=== PATIENT | female | born 1995 | race American Indian/Alaskan Native ===

== ENCOUNTER 2020-07-08 19:58 | Emergency (ER) | payer SELFPAY ==
[2020-07-08 21:14] VITALS: BP 128/91
[2020-07-08] MEDS ORDERED: HYOSCYAMINE SUBL 0.125 MG TAB SL ONE (21:43)
[2020-07-08] MEDS ORDERED: ONDANSETRON 4 MG ODT TAB PO STA (21:43)
[2020-07-08 23:01] LABS: Bacteria,Urine 1+ /HPF (Negative); Mucus,Urine FEW /HPF; RBC,Urine < 1.0 /HPF (0.0-6.0); WBC,Urine < 1.0 /HPF (0.0-6.0)
[2020-07-08 23:02] LABS: Bilirubin,Urine NEG (Negative); Blood,Urine NEG (Negative); Color,Urine Straw (Yellow); Protein,Urine <15 mg/dL mg/dL (Negative); Urobilinogen,Urine < 2.0 mg/dL (<2.0)
[2020-07-08 23:08] LABS: Basophils % (Auto) 0.3 % (0.0-1.8); Eosinophils % (Auto) 0.2 % (0.0-4.3); Hematocrit 39.9 % (30.3-42.9); Hemoglobin 13.4 gm/dl (10.1-14.3); Lymphocytes # (Auto) 1.1 K/mm3 (1.2-5.4); Lymphocytes % (Auto) 9.6 % (13.4-35.0); Mean Corpuscular HGB Conc 34 % (30-34); Mean Corpuscular Volume 95 fl (79-97); Monocytes # (Auto) 0.2 K/mm3 (0.0-0.8); Monocytes % (Auto) 1.9 % (0.0-7.3); Platelet Count 353 K/mm3 (140-440); Red Blood Count 4.18 M/mm3 (3.65-5.03); Red Cell Distribution Width 13.5 % (13.2-15.2)
[2020-07-08] MEDS ORDERED: SODIUM CHLORIDE 0.9% 1000 ML 1,000 ML IV ONE (23:24)
[2020-07-08] MEDS ORDERED: ONDANSETRON 4 MG/2 ML INJ IV ONE (23:24)
[2020-07-08 23:29] LABS: Alanine Aminotransferase 11 units/L (7-56); Albumin 4.8 g/dL (3.9-5); Blood Urea Nitrogen 7 mg/dL (7-17); Calcium 9.5 mg/dL (8.4-10.2); Hemolysis Index 0
[2020-07-08 23:30] LABS: Alanine Aminotransferase 11 units/L (7-56); Albumin 4.9 g/dL (3.9-5)
--- NOTE | 2020-07-08 23:31 | Emergency Department Report ---
HPI - General Chief Complaint: Nausea/Vomiting/Diarrhea Time Seen by Provider: 07/08/20 23:13 - HPI HPI: This is a 25-year-old -Vietnamese female presents to the emergency department with complaint of a 2-day history of nausea and vomiting, and the p atient now has some left-sided abdominal pain. Through triage the patient had complained of having some generalized chest discomfort. Patient has been unable to attempt any treatment secondary to the persistent nausea and vomiting. She denies any past medical history. No recent travel or sick contacts at home. She denies any tobacco or illicit drug use. The patient says that she has had some chills and subjective fever. She denies any cough, diarrhea, constipation, dysuria, vaginal bleeding or discharge. ED Past Medical Hx - Past Medical History Previous Medical History?: No - Surgical History Past Surgical History?: No - Social History Smoking Status: Never Smoker Substance Use Type: None - Medications Home Medications: Home Medications Medication Instructions Recorded Confirmed Last Taken Type Clotrimazole [Antifungal] 1 each TP BID #1 cream..g. 03/08/19 Unknown Rx Metoclopramide [Reglan] 10 mg PO TID PRN #12 tab 07/09/20 Unknown Rx Ondansetron [Zofran Odt] 4 mg PO Q8HR PRN #15 tab.rapdis 07/09/20 Unknown Rx ED Review of Systems ROS: Stated complaint: VOMITING FOR 2DAYS/CHEST PAIN Other details as noted in HPI Comment: All other systems reviewed and negative Constitutional: chills, fever (Subjective) Eyes: denies: eye pain, vision change ENT: denies: ear pain, throat pain Respiratory: denies: cough, wheezing Cardiovascular: chest pain. denies: palpitations Gastrointestinal: abdominal pain, nausea, vomiting Genitourinary: denies: dysuria, discharge Musculoskeletal: denies: back pain, arthralgia Skin: denies: rash, lesions Neurological: denies: headache, weakness Physical Exam - Physical Exam Vital Signs: Vital Signs 07/08/20 21:11 Temperature 98.9 F Pulse Rate 102 H Respiratory 18 Rate Blood Pressure 128/91 O2 Sat by Pulse 97 Oximetry Physical Exam: GENERAL: The patient is well-developed well-nourished. HENT: Normocephalic. Atraumatic. Patient has moist mucous membranes. EYES: Extraocular motions are intact. NECK: Supple. Trachea is midline. CHEST/LUNGS: Clear to auscultation. There is no respiratory distress noted. HEART/CARDIOVASCULAR: Regular. There is no tachycardia. There is no murmur. ABDOMEN: Abdomen is soft. Left sided abdominal tenderness to palpation. No guarding. Patient has normal bowel sounds. There is no abdominal distention. SKIN: Skin is warm and dry. NEURO: The patient is awake, alert, and oriented. The patient is cooperative. The patient has no focal neurologic deficits. Normal speech. MUSCULOSKELETAL: There is no tenderness or deformity. There is no limitation range of motion. ED Course Vital Signs 07/08/20 21:11 Temperature 98.9 F Pulse Rate 102 H Respiratory 18 Rate Blood Pressure 128/91 O2 Sat by Pulse 97 Oximetry - Reevaluation(s) Reevaluation #1: 07/09/20 05:37 Vital Signs 07/08/20 07/09/20 21:11 04:56 Temperature 98.9 F 98.2 F Pulse Rate 102 H Respiratory 18 Rate Blood Pressure 128/91 O2 Sat by Pulse 97 Oximetry ED Medical Decision Making - Lab Data Result diagrams: 07/08/20 22:19 07/08/20 22:19 Lab Results 07/08/20 07/08/20 07/08/20 Range/Units 22:16 22:19 22:19 WBC 11.0 (4.5-11.0) K/mm3 RBC 4.18 (3.65-5.03) M/mm3 Hgb 13.4 (10.1-14.3) gm/dl Hct 39.9 (30.3-42.9) % MCV 95 (79-97) fl MCH 32 (28-32) pg MCHC 34 (30-34) % RDW 13.5 (13.2-15.2) % Plt Count 353 (140-440) K/mm3 Lymph % (Auto) 9.6 L (13.4-35.0) % [place] % (Auto) 1.9 (0.0-7.3) % Eos % (Auto) 0.2 (0.0-4.3) % Baso % (Auto) 0.3 (0.0-1.8) % Lymph # (Auto) 1.1 L (1.2-5.4) K/mm3 [place] # (Auto) 0.2 (0.0-0.8) K/mm3 Eos # (Auto) 0.0 (0.0-0.4) K/mm3 Baso # (Auto) 0.0 (0.0-0.1) K/mm3 Seg Neutrophils % 88.0 H (40.0-70.0) % Seg Neutrophils # 9.7 H (1.8-7.7) K/mm3 Sodium 142 (137-145) mmol/L Potassium 3.9 (3.6-5.0) mmol/L Chloride 104.9 (98-107) mmol/L Carbon Dioxide 26 (22-30) mmol/L Anion Gap 15 mmol/L BUN 7 (7-17) mg/dL Creatinine 0.5 L (0.6-1.2) mg/dL Estimated GFR > 60 ml/min BUN/Creatinine Ratio 14 % Glucose 118 H (65-100) mg/dL Calcium 9.5 (8.4-10.2) mg/dL Total Bilirubin 0.30 (0.1-1.2) mg/dL Direct Bilirubin (0-0.2) mg/dL Indirect Bilirubin mg/dL AST 20 (5-40) units/L ALT 11 (7-56) units/L Alkaline Phosphatase 63 (35-129) units/L Troponin T < 0.010 (0.00-0.029) ng/mL Total Protein 7.5 (6.3-8.2) g/dL Albumin 4.8 (3.9-5) g/dL Albumin/Globulin Ratio 1.8 % Lipase (13-60) units/L HCG, Qual (Negative) Urine Color Straw (Yellow) Urine Turbidity Clear (Clear) Urine pH 8.0 H (5.0-7.0) Ur Specific [place] 1.014 (1.003-1.030) Urine Protein <15 mg/dl (Negative) mg/dL Urine Glucose (UA) Neg (Negative) mg/dL Urine Ketones Neg (Negative) mg/dL Urine Blood Neg (Negative) Urine Nitrite Neg (Negative) Ur Reducing Substances Not Reportable Urine Bilirubin Neg (Negative) Urine Ictotest Not Reportable Urine Urobilinogen < 2.0 (<2.0) mg/dL Ur Leukocyte Esterase Neg (Negative) Urine WBC (Auto) < 1.0 (0.0-6.0) /HPF Urine RBC (Auto) < 1.0 (0.0-6.0) /HPF U Epithel Cells (Auto) 2.0 (0-13.0) /HPF Urine Bacteria (Auto) 1+ (Negative) /HPF Urine Mucus Few /HPF 07/08/20 07/08/20 Range/Units 22:19 22:19 WBC (4.5-11.0) K/mm3 RBC (3.65-5.03) M/mm3 Hgb (10.1-14.3) gm/dl Hct (30.3-42.9) % MCV (79-97) fl MCH (28-32) pg MCHC (30-34) % RDW (13.2-15.2) % Plt Count (140-440) K/mm3 Lymph % (Auto) (13.4-35.0) % [place] % (Auto) (0.0-7.3) % Eos % (Auto) (0.0-4.3) % Baso % (Auto) (0.0-1.8) % Lymph # (Auto) (1.2-5.4) K/mm3 [place] # (Auto) (0.0-0.8) K/mm3 Eos # (Auto) (0.0-0.4) K/mm3 Baso # (Auto) (0.0-0.1) K/mm3 Seg Neutrophils % (40.0-70.0) % Seg Neutrophils # (1.8-7.7) K/mm3 Sodium (137-145) mmol/L Potassium (3.6-5.0) mmol/L Chloride (98-107) mmol/L Carbon Dioxide (22-30) mmol/L Anion Gap mmol/L BUN (7-17) mg/dL Creatinine (0.6-1.2) mg/dL Estimated GFR ml/min BUN/Creatinine Ratio % Glucose (65-100) mg/dL Calcium (8.4-10.2) mg/dL Total Bilirubin 0.30 (0.1-1.2) mg/dL Direct Bilirubin < 0.2 (0-0.2) mg/dL Indirect Bilirubin 0.1 mg/dL AST 22 (5-40) units/L ALT 11 (7-56) units/L Alkaline Phosphatase 63 (35-129) units/L Troponin T (0.00-0.029) ng/mL Total Protein 7.5 (6.3-8.2) g/dL Albumin 4.9 (3.9-5) g/dL Albumin/Globulin Ratio 1.9 % Lipase 20 (13-60) units/L HCG, Qual Negative (Negative) Urine Color (Yellow) Urine Turbidity (Clear) Urine pH (5.0-7.0) Ur Specific [place] (1.003-1.030) Urine Protein (Negative) mg/dL Urine Glucose (UA) (Negative) mg/dL Urine Ketones (Negative) mg/dL Urine Blood (Negative) Urine Nitrite (Negative) Ur Reducing Substances Urine Bilirubin (Negative) Urine Ictotest Urine Urobilinogen (<2.0) mg/dL Ur Leukocyte Esterase (Negative) Urine WBC (Auto) (0.0-6.0) /HPF Urine RBC (Auto) (0.0-6.0) /HPF U Epithel Cells (Auto) (0-13.0) /HPF Urine Bacteria (Auto) (Negative) /HPF Urine Mucus /HPF - Radiology Data Radiology results: image reviewed interpreted by me: Abdominal x-ray shows nonspecific nonobstructive bowel gas. - Medical Decision Making This patient presents with a complaint of a 2-day history of nausea vomiting and now some subsequent abdominal pain. On examination there is some reproducible left-sided abdominal tenderness to palpation. However the abdomen is soft, nondistended and nontoxic in appearance. Abdominal x-ray shows nonspecific nonobstructive bowel gas. Patient's labs have been unremarkable including CBC, CMP, urinalysis, and the patient is not . Patient was given 2 different doses of Zofran, a dose of Reglan, and some IV fluid resuscitation. She was reevaluated multiple times over multiple hours but has started to improve. She was able to pass an oral challenge. For these reasons the patient appears safe for discharge home at this time. She has been given a prescription for antiemetics and instructed to increase oral rehydration. She will return to the emergency department with any worsening of her symptoms or with any acute distress. Critical Care Time: No Critical care attestation.: If time is entered above; I have spent that time in minutes in the direct care of this critically ill patient, excluding procedure time. ED Disposition Clinical Impression: Nausea & vomiting Qualifiers: Vomiting type: unspecified Vomiting Intractability: unspecified Qualified Code(s): R11.2 - Nausea with vomiting, unspecified Abdominal pain Qualifiers: Abdominal location: unspecified location Qualified Code(s): R10.9 - Unspecified abdominal pain Disposition: TO HOME OR SELFCARE Is pt being admited?: No Condition: Stable Instructions: Abdominal Pain, Adult, Nausea and Vomiting, Adult Additional Instructions: Please follow-up with a primary care physician in the next few days. Increase your oral rehydration. Take the medications as prescribed. Return to the emergency department with any worsening of your symptoms, new or concerning symptoms not addressed during this current emergency department visit, or with any acute distress. Prescriptions: Metoclopramide [Reglan] 10 mg PO TID PRN #12 tab PRN Reason: Nausea Ondansetron [Zofran Odt] 4 mg PO Q8HR PRN #15 tab.rapdis PRN Reason: Nausea Referrals: PRIMARY MD BLU [Primary Care Provider] - 3-5 Days CECILIA VINCENT MD [Staff Physician] - 3-5 Days [facility] [Provider Group] - 3-5 Days Time of Disposition: 04:33
[2020-07-08 23:39] LABS: BUN/Creatinine Ratio 14; Bilirubin,Direct < 0.2 mg/dL (0-0.2)
--- NOTE | 2020-07-09 00:20 | XRay Report ---
ABDOMEN 1 VIEW(S) INDICATION / CLINICAL INFORMATION: Abd pain. COMPARISON: None available. FINDINGS: TUBES / LINES: None. BOWEL GAS PATTERN/EXTRALUMINAL GAS: No significant abnormality. No free air. ADDITIONAL FINDINGS: Lung bases are clear. IMPRESSION: 1. No acute abnormality. Signer Name: Sundeep Hobson MD Signed: 07/09/2020 12:15 AM Workstation Name: [id number]
[2020-07-09] MEDS ORDERED: ONDANSETRON 4 MG/2 ML INJ IV ONE (01:03)
[2020-07-09] MEDS ORDERED: FAMOTIDINE 20 MG/2 ML INJ IV ONE (01:03)
[2020-07-09] MEDS ORDERED: SODIUM CHLORIDE 0.9% 1000 ML 1,000 ML IV ONE (01:03)
[2020-07-09] MEDS ORDERED: MORPHINE 4 MG/1 ML INJ IV ONE (01:03)
[2020-07-09] MEDS ORDERED: METOCLOPRAMIDE 10 MG/2 ML INJ IV ONE (02:58)
== END 2020-07-09 04:05 | disposition home or self-care (01) ==
LOC: ED 19:58
DX: R11.2 Nausea with vomiting, unspecified (principal); R10.9 Unspecified abdominal pain; Z79.899 Other long term (current) drug therapy
CPT/HCPCS: 36415; 74019; 80053; 80076; 81001; 83690; 84484; 84703; 85025; 96361; 96374; 96375; 96376; 99284; J2270; J2405; J2765; J7030

== ENCOUNTER 2020-10-18 14:52 | Emergency (ER) | payer SELFPAY ==
[2020-10-18 16:36] LABS: Bilirubin,Urine NEG (Negative); Blood,Urine LG (Negative); Color,Urine Yellow (Yellow); Mucus,Urine 3+ /HPF; Urobilinogen,Urine < 2.0 mg/dL (<2.0)
[2020-10-18 16:38] LABS: HCG Qualitative,Urine Negative (Negative)
[2020-10-18 16:39] LABS: RBC,Urine > 182.0 /HPF (0.0-6.0)
--- NOTE | 2020-10-18 17:08 | Event Note ---
ED Screening Note Date of service: 10/18/20 Time: 17:07 ED Screening Note: 25-year-old -[place] female presents to the emergency room for 2-day history of lower abdominal pain. Denies any dysuria. Menstrual period started 10/18/2020. Patient has a chronic history of lower abdominal pain. She states she has been to [employer]. This initial assessment/diagnostic orders/clinical plan/treatment(s) is/are subject to change based on patients health status, clinical progression and re-assessment by fellow clinical providers in the ED. Further treatment and workup at subsequent clinical providers discretion. Patient/guardian urged not to elope from the ED as their condition may be serious if not clinically assessed and managed. Initial orders include:
[2020-10-18] MEDS ORDERED: KETOROLAC 30 MG/1 ML INJ IV ONE (17:26)
[2020-10-18] MEDS ORDERED: SODIUM CHLORIDE 0.9% 1000 ML 1,000 ML IV ONE (17:26)
[2020-10-18] MEDS ORDERED: ONDANSETRON 4 MG ODT TAB PO ONE (17:26)
[2020-10-18] MEDS ORDERED: ONDANSETRON 4 MG/2 ML INJ IV ONE (17:28)
--- NOTE | 2020-10-18 17:31 | Emergency Department Report ---
ED Abdominal Pain HPI - General Chief Complaint: Abdominal Pain Stated Complaint: VOMITING/ABD PAIN PUI?: No Time Seen by Provider: 10/18/20 17:25 Source: patient Mode of arrival: Ambulatory Limitations: No Limitations - History of Present Illness Initial Comments: This is a 25-year-old female with a history of endometriosis presents to ED complaining of lower pelvic pain with nausea and vomiting x2 days. Patient states that she usually has pelvic pain but she has never felt this kind of pain before. Patient states pain is localized to the right lower pelvic region. Patient states last menstrual period began today. Patient states intermittent nausea vomiting for the past couple of days. MD Complaint: abdominal pain -: days(s) (3) Location: RLQ Severity scale (0 -10): 8 Quality: cramping, stabbing Associated Symptoms: nausea, vomiting - Related Data Previous Rx's Medication Instructions Recorded Last Taken Type Clotrimazole [Antifungal] 1 each TP BID #1 cream..g. 03/08/19 Unknown Rx Metoclopramide [Reglan] 10 mg PO TID PRN #12 tab 07/09/20 Unknown Rx Acetaminophen/Codeine [Tylenol 1 tab PO Q6H #12 tab 10/18/20 Unknown Rx /Codeine # 3 tab] Dicyclomine [Bentyl] 20 mg PO BID #30 tablet 10/18/20 Unknown Rx Ibuprofen [Motrin] 800 mg PO Q8HR #40 tablet 10/18/20 Unknown Rx Ondansetron [Zofran ODT TAB] 4 mg PO Q8HR PRN #15 tab.rapdis 10/18/20 Unknown Rx Allergies Allergy/AdvReac Type Severity Reaction Status Date / Time No Known Allergies Allergy Verified 07/08/20 21:13 ED Review of Systems ROS: Stated complaint: VOMITING/ABD PAIN Other details as noted in HPI Comment: All other systems reviewed and negative ED Past Medical Hx - Past Medical History Previous Medical History?: Yes Additional medical history: Hx of severe abdominal pain - Surgical History Past Surgical History?: No - Social History Smoking Status: Current Every Day Smoker Substance Use Type: Marijuana - Medications Home Medications: Home Medications Medication Instructions Recorded Confirmed Last Taken Type Clotrimazole [Antifungal] 1 each TP BID #1 cream..g. 03/08/19 Unknown Rx Metoclopramide [Reglan] 10 mg PO TID PRN #12 tab 07/09/20 Unknown Rx Acetaminophen/Codeine [Tylenol 1 tab PO Q6H #12 tab 10/18/20 Unknown Rx /Codeine # 3 tab] Dicyclomine [Bentyl] 20 mg PO BID #30 tablet 10/18/20 Unknown Rx Ibuprofen [Motrin] 800 mg PO Q8HR #40 tablet 10/18/20 Unknown Rx Ondansetron [Zofran ODT TAB] 4 mg PO Q8HR PRN #15 tab.rapdis 10/18/20 Unknown Rx ED Physical Exam - General Limitations: No Limitations General appearance: alert, in no apparent distress, other (Actively vomiting) - Head Head exam: Present: atraumatic, normocephalic - Eye Eye exam: Present: normal appearance Pupils: Present: normal accommodation - ENT ENT exam: Present: mucous membranes moist - Neck Neck exam: Present: normal inspection - Respiratory Respiratory exam: Present: normal lung sounds bilaterally. Absent: respiratory distress - Cardiovascular Cardiovascular Exam: Present: regular rate, normal rhythm. Absent: systolic murmur, diastolic murmur, rubs, gallop - GI/Abdominal GI/Abdominal exam: Present: soft, tenderness (To palpation of the right lower quadrant), normal bowel sounds. Absent: distended - Expanded GI/Abdominal Exam Expanded GI/Abdominal exam: Present: obturator sign - Extremities Exam Extremities exam: Present: normal inspection - Back Exam Back exam: Present: normal inspection. Absent: tenderness, CVA tenderness (R), CVA tenderness (L) - Neurological Exam Neurological exam: Present: alert, oriented X3 - Psychiatric Psychiatric exam: Present: normal affect, normal mood - Skin Skin exam: Present: warm, dry, intact, normal color. Absent: rash ED Course Vital Signs 10/18/20 15:30 Temperature 98.3 F Pulse Rate 104 H Respiratory 20 Rate Blood Pressure 106/53 O2 Sat by Pulse 100 Oximetry - Reevaluation(s) Reevaluation #1: Upon reassessment at this time patient is lying comfortably in ED bed. patient reports feeling better, she states that the pain is resolved. IV fluids currently being administered. 10/18/20 18:53 ED Medical Decision Making - Radiology Data Radiology results: report reviewed, image reviewed CT ABDOMEN AND PELVIS WITHOUT CONTRAST INDICATION / CLINICAL INFORMATION: RLQ pain w N/V. TECHNIQUE: Axial CT images were obtained through the abdomen and pelvis without IV contrast. All CT scans at this location are performed using CT dose reduction for ALARA by means of automated exposure control. COMPARISON: None FINDINGS: LOWER CHEST: No significant abnormality. HEPATOBILIARY: No significant abnormality. PANCREAS/SPLEEN/ADRENALS: No significant abnormality. GENITOURINARY: No significant abnormality. GASTROINTESTINAL/MESENTERY: Appendix is visualized and demonstrates no significant abnormality. No bowel obstruction or inflammation is evident. RETROPERITONEUM: No significant adenopathy. REPRODUCTIVE ORGANS: No significant abnormality. VASCULAR: No significant abnormality. BODY WALL: No significant abnormality. SKELETAL SYSTEM: No significant abnormality. IMPRESSION: 1. No acute abdominopelvic abnormality. Signer Name: Robby Hearn MD Signed: 10/18/2020 6:22 PM Workstation Name: [id number] Transcribed By: Dictated By: ROBBY HEARN III Electronically Authenticated By: ROBBY HEARN III Signed Date/Time: 10/18/201821 - Medical Decision Making This 25-year-old female who presented with 3 days of abdominal pain with nausea and vomiting. Patient was initially actively vomiting upon evaluation. Upon reevaluation after IV fluids and meds patient is no longer vomiting. CT scan of the abdomen pelvis shows no acute abnormality. Patient is currently stable in no distress - Differential Diagnosis Appendicitis, UTI, ovarian cyst, endometriosis, fibroids, dysmenorrhea Critical care attestation.: If time is entered above; I have spent that time in minutes in the direct care of this critically ill patient, excluding procedure time. ED Disposition Clinical Impression: Nausea & vomiting, Abdominal pain, Dysmenorrhea Disposition: TO HOME OR SELFCARE Is pt being admited?: No Does the pt Need Aspirin: No Condition: Stable Instructions: Abdominal Pain (ED), Nausea and Vomiting, Adult, Abdominal Pain, Adult, [id number], Dysmenorrhea, [id number] Additional Instructions: Make sure to follow up with the primary care physician as discussed. Take all your medications as you've been prescribed. If you have any worsening symptoms or develop new symptoms please return to ED immediately. Prescriptions: Dicyclomine [Bentyl] 20 mg PO BID #30 tablet Ibuprofen [Motrin] 800 mg PO Q8HR #40 tablet Acetaminophen/Codeine [Tylenol /Codeine # 3 tab] 1 tab PO Q6H #12 tab Ondansetron [Zofran ODT TAB] 4 mg PO Q8HR PRN #15 tab.rapdis PRN Reason: Nausea Referrals: PRIMARY CARE, [Primary Care Provider] - 3-5 Days [facility] [place]Outside] - 3-5 Days [facility] [Outside] - 3-5 Days [facility] [Provider Group] - 3-5 Days [facility] [Provider Group] - 3-5 Days Forms: Work/School Release Form(ED)
--- NOTE | 2020-10-18 18:27 | Cat Scan Report ---
CT ABDOMEN AND PELVIS WITHOUT CONTRAST INDICATION / CLINICAL INFORMATION: RLQ pain w N/V. TECHNIQUE: Axial CT images were obtained through the abdomen and pelvis without IV contrast. All CT scans at [facility] are performed using CT dose reduction for ALARA by means of automated exposure control. COMPARISON: None FINDINGS: LOWER CHEST: No significant abnormality. HEPATOBILIARY: No significant abnormality. PANCREAS/SPLEEN/ADRENALS: No significant abnormality. GENITOURINARY: No significant abnormality. GASTROINTESTINAL/MESENTERY: Appendix is visualized and demonstrates no significant abnormality. No turner wel obstruction or inflammation is evident. RETROPERITONEUM: No significant adenopathy. REPRODUCTIVE ORGANS: No significant abnormality. VASCULAR: No significant abnormality. BODY WALL: No significant abnormality. SKELETAL SYSTEM: No significant abnormality. IMPRESSION: 1. No acute abdominopelvic abnormality. Signer Name: Robby Hearn MD Signed: 10/18/2020 6:22 PM Workstation Name: [id number]
[2020-10-18] MEDS ORDERED: METOCLOPRAMIDE 10 MG/2 ML INJ IV ONE (19:30)
[2020-10-18] MEDS ORDERED: ACETAMINOPHEN 325 MG TAB PO ONE (19:59)
[2020-10-19 00:39] VITALS: BP 110/71
== END 2020-10-18 20:05 | disposition home or self-care (01) ==
LOC: ED 14:52
DX: N94.6 Dysmenorrhea, unspecified (principal); R10.2 Pelvic and perineal pain; R11.2 Nausea with vomiting, unspecified; F17.200 Nicotine dependence, unspecified, uncomplicated; F12.90 Cannabis use, unspecified, uncomplicated; Z79.899 Other long term (current) drug therapy
CPT/HCPCS: 74176; 81001; 81025; 87086; 96361; 96374; 96375; 99284; J1885; J2405; J2765; J7030

== ENCOUNTER 2021-05-22 10:54 | Emergency (ER) | payer SELFPAY ==
[2021-05-22 10:59] VITALS: BP 112/70
--- NOTE | 2021-05-22 11:57 | Emergency Department Report ---
ED HPI - General Chief complaint: Vaginal Bleeding Stated complaint: VAG BLEEDING Time Seen by Provider: 05/22/21 11:08 Source: patient Mode of arrival: Ambulatory Limitations: No Limitations - History of Present Illness Initial comments: 25-year-old female with no significant past medical history presents to the ER today with complaints of vaginal bleeding. Patient states that she took a test about 2 days ago, and both were positive. Last menstrual cycle was the beginning of April and was late on her period for May. She states that the bleeding started last night. She states that last night the bleeding was tilt tray driver than her typical., She did have to use 1 pad but it was not soaked through. She states that currently it is now just spotting. She reports associated intermittent lower abdominal cramping but otherwise no other symptoms. She is G1, P0 Ab0. She denies any significant past medical history. MD Complaint: vaginal bleeding -: Last night - Related Data Previous Rx's Medication Instructions Recorded Last Taken Type Clotrimazole [Antifungal] 1 each TP BID #1 cream..g. 03/08/19 Unknown Rx Metoclopramide [Reglan] 10 mg PO TID PRN #12 tab 07/09/20 Unknown Rx Acetaminophen/Codeine [Tylenol 1 tab PO Q6H #12 tab 10/18/20 Unknown Rx /Codeine # 3 tab] Dicyclomine [Bentyl] 20 mg PO BID #30 tablet 10/18/20 Unknown Rx Ibuprofen [Motrin] 800 mg PO Q8HR #40 tablet 10/18/20 Unknown Rx Ondansetron [Zofran ODT TAB] 4 mg PO Q8HR PRN #15 tab.rapdis 10/18/20 Unknown Rx Allergies Allergy/AdvReac Type Severity Reaction Status Date / Time No Known Allergies Allergy Verified 07/08/20 21:13 ED Review of Systems ROS: Stated complaint: VAG BLEEDING Other details as noted in HPI Comment: All other systems reviewed and negative Constitutional: denies: chills, fever Eyes: denies: eye pain, eye discharge, vision change ENT: denies: ear pain, throat pain Respiratory: denies: cough, shortness of breath, SOB with exertion, SOB at rest, wheezing Gastrointestinal: abdominal pain. denies: nausea, vomiting, diarrhea, melena Genitourinary: other (Abnormal vaginal bleeding). denies: urgency, dysuria, frequency, hematuria, discharge, abnormal menses, dyspareunia Musculoskeletal: denies: back pain, joint swelling, arthralgia Skin: denies: rash, lesions, change in color, change in hair/nails, pruritus Neurological: denies: headache, weakness, numbness, paresthesias, confusion, abnormal gait, vertigo Psychiatric: denies: anxiety, depression, auditory hallucinations, visual hallucinations, homicidal thoughts, suicidal thoughts ED Past Medical Hx - Past Medical History Additional medical history: Hx of severe abdominal pain - Social History Smoking Status: Current Every Day Smoker Substance Use Type: Marijuana - Medications Home Medications: Home Medications Medication Instructions Recorded Confirmed Last Taken Type Clotrimazole [Antifungal] 1 each TP BID #1 cream..g. 03/08/19 Unknown Rx Metoclopramide [Reglan] 10 mg PO TID PRN #12 tab 07/09/20 Unknown Rx Acetaminophen/Codeine [Tylenol 1 tab PO Q6H #12 tab 10/18/20 Unknown Rx /Codeine # 3 tab] Dicyclomine [Bentyl] 20 mg PO BID #30 tablet 10/18/20 Unknown Rx Ibuprofen [Motrin] 800 mg PO Q8HR #40 tablet 10/18/20 Unknown Rx Ondansetron [Zofran ODT TAB] 4 mg PO Q8HR PRN #15 tab.rapdis 10/18/20 Unknown Rx ED Physical Exam - General Limitations: No Limitations General appearance: alert, in no apparent distress - Head Head exam: Present: atraumatic, normocephalic, normal inspection - Eye Eye exam: Present: normal appearance, PERRL, EOMI Pupils: Present: normal accommodation - ENT ENT exam: Present: normal exam, mucous membranes moist, TM's normal bilaterally - Neck Neck exam: Present: normal inspection, full ROM. Absent: tenderness - Respiratory Respiratory exam: Present: normal lung sounds bilaterally. Absent: respiratory distress, wheezes, rales, rhonchi - Cardiovascular Cardiovascular Exam: Present: regular rate, normal rhythm, normal heart sounds - GI/Abdominal GI/Abdominal exam: Present: soft. Absent: distended, tenderness, guarding, rebound - Neurological Exam Neurological exam: Present: alert, oriented X3, CN II-XII intact, normal gait - Psychiatric Psychiatric exam: Present: normal affect, normal mood - Skin Skin exam: Present: intact ED Course Vital Signs 05/22/21 10:58 Temperature 98.3 F Pulse Rate 94 H Respiratory 16 Rate Blood Pressure 112/70 [Right] O2 Sat by Pulse 99 Oximetry ED Medical Decision Making - Lab Data Result diagrams: 05/22/21 12:04 05/22/21 12:04 - Radiology Data Radiology results: report reviewed Patient: KANG MONSON MR#: [id number] : 1995 Acct:[id number] Age/Sex: 25 / F ADM Date: 05/22/21 Loc: ED Attending Dr: Ordering Physician: BERNADINE BRAVO Date of Service: 05/22/21 Procedure(s): US OB transvaginal Accession Number(s): [id number] cc: BERNADINE BRAVO US OB transvaginal INDICATION / CLINICAL INFORMATION: lower abd pain; +preg;vAG BLEEDING. COMPARISON: None available. FINDINGS: Uterus measures 7.4 cm in length. The endometrial echo complex measures 3 mm. No endometrial fluid collections. Both ovaries contain small follicles. Flow is seen to both ovaries. No adnexal lesions are seen. No free fluid. IMPRESSION: 1. No sonographic evidence of intrauterine . No adnexal lesion or free fluid. Signer Name: Olvin Pizarro MD Signed: 05/22/2021 2:05 PM Workstation Name: [id number] Transcribed By: WALLY Dictated By: Olvin Pizarro MD Electronically Authenticated By: Olvin Pizarro MD Signed Date/Time: 05/22/21 140 DD/ 03 TD/TT: - Medical Decision Making Quantitative hCG measured at 9.7; remaining labs unremarkable including normal UA; OB ultrasound shows IMPRESSION: 1. No sonographic evidence of intrauterine . No adnexal lesion or free fluid. Patient currently seated reclined is comfortably. She is not in any significant distress. She has a soft nontender abdomen. Her vital signs are stable. She is not toxic or ill-appearing. Discussed all results with patient. Given that it is still concern for possible ectopic, patient was instructed to return to the ER in 2 days for repeat quant and ultrasound. Patient expressed understanding of all instructions and agree with plan. Patient stable at time of discharge. Critical care attestation.: If time is entered above; I have spent that time in minutes in the direct care of this critically ill patient, excluding procedure time. ED Disposition Clinical Impression: Threatened miscarriage Disposition: 01 HOME / SELF CARE / HOMELESS Is pt being admited?: No Does the pt Need Aspirin: No Condition: Stable Instructions: Threatened Miscarriage, [id number] Additional Instructions: Your quantitative hCG measured at 9.7. At this time ultrasound does not show a intrauterine or clear location of your at this time. This could be related to you having an early or miscarriage but also could be related to an ectopic . We do recommend that you return to the ER in 48 hours for repeat quant and ultrasound. Do return sooner if at any point you have significantly worsening pain especially if is located it on one side. You will be given referral information to local [facility] on your discharge instructions I do also recommend that you try to contact the office to schedule an appointment. Take Tylenol as needed for pain and you can also start taking vitamins from [id number]. Referrals: [facility] [Provider Group] - 3-5 Days [facility] [Provider [facility]] - 3-5 Days Forms: Work/School Release Form(ED) Time of Disposition: 14:14
[2021-05-22 12:39] LABS: Basophils # (Auto) 0.1 K/mm3 (0.0-0.1); Basophils % (Auto) 0.6 % (0.0-1.8); Eosinophils % (Auto) 0.2 % (0.0-4.3); Hematocrit 41.1 % (30.3-42.9); Hemoglobin 13.5 gm/dl (10.1-14.3); Lymphocytes # (Auto) 2.3 K/mm3 (1.2-5.4); Lymphocytes % (Auto) 27.1 % (13.4-35.0); Mean Corpuscular HGB Conc 33 % (30-34); Mean Corpuscular Volume 96 fl (79-97); Monocytes # (Auto) 0.5 K/mm3 (0.0-0.8); Monocytes % (Auto) 6.4 % (0.0-7.3); Platelet Count 322 K/mm3 (140-440); Red Blood Count 4.29 M/mm3 (3.65-5.03); Red Cell Distribution Width 13.7 % (13.2-15.2)
[2021-05-22 12:54] LABS: Alanine Aminotransferase 7 units/L (7-56); Albumin 4.6 g/dL (3.9-5); Blood Urea Nitrogen 19 mg/dL (7-17); Calcium 9.4 mg/dL (8.4-10.2); Hemolysis Index 22
[2021-05-22 12:58] LABS: BUN/Creatinine Ratio 27
[2021-05-22 13:51] LABS: HCG Qualitative,Urine Negative (Negative)
[2021-05-22 13:58] LABS: Bilirubin,Urine NEG (Negative); Blood,Urine MOD (Negative); Color,Urine Amber (Yellow); Mucus,Urine 3+ /HPF
--- NOTE | 2021-05-22 14:10 | Ultrasound Report ---
US OB transvaginal INDICATION / CLINICAL INFORMATION: lower abd pain; +preg;vAG BLEEDING. COMPARISON: None available. FINDINGS: Uterus measures 7.4 cm in length. The endometrial echo complex measures 3 mm. No endometrial fluid co llections. Both ovaries contain small follicles. Flow is seen to both ovaries. No adnexal lesions are seen. No free fluid. IMPRESSION: 1. No sonographic evidence of intrauterine . No adnexal lesion or free fluid. Signer Name: Olvin Pizarro MD Signed: 05/22/2021 2:05 PM Workstation Name: [id number]
== END 2021-05-22 14:35 | disposition home or self-care (01) ==
LOC: ED 10:54
DX: O20.0 Threatened abortion (principal); F17.200 Nicotine dependence, unspecified, uncomplicated; F12.90 Cannabis use, unspecified, uncomplicated; Z3A.01 Less than 8 weeks gestation of pregnancy; Z79.899 Other long term (current) drug therapy
CPT/HCPCS: 36415; 76817; 80053; 81001; 81025; 84702; 85025; 86900; 86901; 87086; 99284

== ENCOUNTER 2021-05-27 10:39 | Emergency (ER) | payer SELFPAY ==
[2021-05-27 10:47] VITALS: BP 102/50
--- NOTE | 2021-05-27 11:52 | Emergency Department Report ---
ED General Adult HPI - General Chief complaint: Abdominal Pain Stated complaint: possible miscarriage, lower back and side pain Time Seen by Provider: 05/27/21 11:32 Source: patient Mode of arrival: Ambulatory Limitations: No Limitations - History of Present Illness Initial comments: 26-year-old female presents to the ER today for recheck of quant hCG. Patient was seen here on May 22 for vaginal bleeding and . At that time her quant was only 9.7. OB ultrasound showed no IUP or any other abnormalities. Patient was informed to return in couple days for recheck of her quant as ectopic still need to be ruled out. Patient states that she has not followed up with [facility] since she was last seen. She states that her bleeding has stopped since she was last seen but she did start having some mild pain in her lower back and left flank area since she was last seen and continues to have mild intermittent abdominal cramps. She denies any UTI symptoms. She denies any fever or chills. She denies any abnormal vaginal discharge. This was her first . ED Rh was A+. MD Complaint: Recheck Quant HCG/Left flank/back pain -: days(s) Severity scale (0 -10): 7 - Related Data Previous Rx's Medication Instructions Recorded Last Taken Type Clotrimazole [Antifungal] 1 each TP BID #1 cream..g. 03/08/19 Unknown Rx Metoclopramide [Reglan] 10 mg PO TID PRN #12 tab 07/09/20 Unknown Rx Acetaminophen/Codeine [Tylenol 1 tab PO Q6H #12 tab 10/18/20 Unknown Rx /Codeine # 3 tab] Dicyclomine [Bentyl] 20 mg PO BID #30 tablet 10/18/20 Unknown Rx Ibuprofen [Motrin] 800 mg PO Q8HR #40 tablet 10/18/20 Unknown Rx Ondansetron [Zofran ODT TAB] 4 mg PO Q8HR PRN #15 tab.rapdis 10/18/20 Unknown Rx Allergies Allergy/AdvReac Type Severity Reaction Status Date / Time No Known Allergies Allergy Verified 05/27/21 10:46 ED Review of Systems ROS: Stated complaint: possible miscarriage, lower back and side pain Other details as noted in HPI Comment: All other systems reviewed and negative Constitutional: denies: chills, diaphoresis, fever, weakness Eyes: denies: eye pain, eye discharge, vision change ENT: denies: ear pain, throat pain, dental pain, hearing loss, epistaxis, congestion Respiratory: denies: cough, shortness of breath, SOB with exertion, SOB at rest, wheezing Cardiovascular: denies: chest pain, palpitations Gastrointestinal: abdominal pain. denies: nausea, vomiting, diarrhea, constipation, hematemesis, melena, hematochezia Genitourinary: denies: urgency, dysuria, frequency, hematuria, discharge, abnormal menses, dyspareunia Musculoskeletal: back pain. denies: joint swelling, arthralgia, myalgia Neurological: denies: headache, weakness, numbness, paresthesias, confusion, abnormal gait, vertigo Psychiatric: denies: anxiety, depression, auditory hallucinations, visual hallucinations, homicidal thoughts, suicidal thoughts Hematological/Lymphatic: denies: easy bleeding, easy bruising, swollen glands ED Past Medical Hx - Past Medical History Additional medical history: Hx of severe abdominal pain - Social History Smoking Status: Current Every Day Smoker Substance Use Type: Marijuana - Medications Home Medications: Home Medications Medication Instructions Recorded Confirmed Last Taken Type Clotrimazole [Antifungal] 1 each TP BID #1 cream..g. 03/08/19 Unknown Rx Metoclopramide [Reglan] 10 mg PO TID PRN #12 tab 07/09/20 Unknown Rx Acetaminophen/Codeine [Tylenol 1 tab PO Q6H #12 tab 10/18/20 Unknown Rx /Codeine # 3 tab] Dicyclomine [Bentyl] 20 mg PO BID #30 tablet 10/18/20 Unknown Rx Ibuprofen [Motrin] 800 mg PO Q8HR #40 tablet 10/18/20 Unknown Rx Ondansetron [Zofran ODT TAB] 4 mg PO Q8HR PRN #15 tab.rapdis 10/18/20 Unknown Rx ED Physical Exam - General Limitations: No Limitations General appearance: alert, in no apparent distress - Head Head exam: Present: atraumatic, normocephalic, normal inspection - Eye Eye exam: Present: normal appearance, PERRL, EOMI Pupils: Present: normal accommodation - ENT ENT exam: Present: normal exam, mucous membranes moist, TM's normal bilaterally - Neck Neck exam: Present: normal inspection, full ROM - Respiratory Respiratory exam: Present: normal lung sounds bilaterally. Absent: respiratory distress, wheezes, rales, rhonchi - Cardiovascular Cardiovascular Exam: Present: regular rate, normal rhythm, normal heart sounds - GI/Abdominal GI/Abdominal exam: Present: soft. Absent: distended, tenderness, guarding, rebound - Back Exam Back exam: Present: normal inspection, full ROM. Absent: CVA tenderness (R), CVA tenderness (L), paraspinal tenderness - Neurological Exam Neurological exam: Present: alert, oriented X3, CN II-XII intact, normal gait - Psychiatric Psychiatric exam: Present: normal affect, normal mood - Skin Skin exam: Present: intact ED Course Vital Signs 05/27/21 10:46 Temperature 98.1 F Pulse Rate 93 H Respiratory 14 Rate Blood Pressure 102/50 [Left] O2 Sat by Pulse 100 Oximetry ED Medical Decision Making - Lab Data Result diagrams: 05/27/21 11:59 05/27/21 11:59 - Radiology Data Radiology results: report reviewed Patient: KANG MONSON MR#: [id number] : 1995 Acct:[id number] Age/Sex: 26 / F ADM Date: 05/27/21 Loc: ED Attending Dr: Ordering Physician: BERNADINE BRAVO Date of Service: 05/27/21 Procedure(s): US OB transvaginal Accession Number(s): [id number] cc: BERNADINE BRAVO ULTRASOUND OBSTETRIC INDICATION: back pain/abd cramp/Quant now 70.43 from 9.57. TECHNIQUE: Transvaginal. COMPARISON: OB ultrasound performed on 05/22/2021. FINDINGS: GESTATIONAL SAC: None seen. YOLK SAC: None seen. EMBRYO/FETUS: None seen. ADNEXA: No significant abnormality. Multiple follicles are seen within each ovary measuring up to 1 cm. FREE FLUID: None. ADDITIONAL FINDINGS: No significant abnormality of the uterus. IMPRESSION: No sonographic evidence of an intrauterine or ectopic or other acute findings. Signer Name: Abraham Salcedo MD Signed: 05/27/2021 2:10 PM Workstation Name: [id number] Transcribed By: KIM Dictated By: Abraham Salcedo MD Electronically Authenticated By: Abraham Salcedo MD Signed Date/Time: 05/27/21 1410 DD/ 1405 TD/TT: - Medical Decision Making Patient Quant today 70.43, an increased from her previous quant 5 days ago of 9. CBC, and CMP unremarkable. UA normal. US today shows -No sonographic evidence of an intrauterine or ectopic or other acute findings. Patient currently pacing, anxious to leave. She is not in any significant distress. She had soft non tender abdomen. She is well appearing. He is neurologically intact with a normal gait. Her vital signs are stable and she is hemodynamically stable for discussed all results with patient. Recommend patient that she should establish with [facility], make an appointment for repeat quant and ultrasound in about 7 to 10 days. If she is unable to follow-up she can return here. She understands that if at any point her pain worsens in her lower abdomen and localizes to one side or the other and has worsening bleeding to return immediately to the ER. Patient expressed understanding for instructions and agree with plan. Patient expressed understanding for instructions and agree with plan. Patient stable at time of discharge Critical care attestation.: If time is entered above; I have spent that time in minutes in the direct care of this critically ill patient, excluding procedure time. ED Disposition Clinical Impression: Threatened miscarriage, Low back pain Disposition: 01 HOME / SELF CARE / HOMELESS Is pt being admited?: No Does the pt Need Aspirin: No Condition: Stable Instructions: Back Pain in , Threatened Miscarriage, [id number], Abdominal Pain (ED) Additional Instructions: I recommend that you continue taking tylenol as needed for pain. I recommend that you call to establish with local OBGYN and for continued monitoring of your for repeat HCG and US in 7-10 days. If you are unable to follow- up with OB you can return to the ER. Return sooner if at any point you start bleeding again and developed significant to low abdominal/pelvic pain especially if it localizes to one side.` Referrals: [facility] [Provider Group] - 3-5 Days [facility] [Provider Group] - 3-5 Days Forms: Work/School Release Form(ED) Time of Disposition: 14:42
[2021-05-27 12:24] LABS: Basophils # (Auto) 0.1 K/mm3 (0.0-0.1); Basophils % (Auto) 1.3 % (0.0-1.8); Eosinophils # (Auto) 0.1 K/mm3 (0.0-0.4); Eosinophils % (Auto) 1.3 % (0.0-4.3); Hematocrit 35.3 % (30.3-42.9); Hemoglobin 11.6 gm/dl (10.1-14.3); Lymphocytes # (Auto) 1.9 K/mm3 (1.2-5.4); Lymphocytes % (Auto) 33.2 % (13.4-35.0); Mean Corpuscular HGB Conc 33 % (30-34); Mean Corpuscular Volume 96 fl (79-97); Monocytes # (Auto) 0.3 K/mm3 (0.0-0.8); Monocytes % (Auto) 5.9 % (0.0-7.3); Platelet Count 307 K/mm3 (140-440); Red Blood Count 3.68 M/mm3 (3.65-5.03); Red Cell Distribution Width 13.2 % (13.2-15.2)
[2021-05-27 12:37] LABS: Albumin 4.1 g/dL (3.9-5); Blood Urea Nitrogen 8 mg/dL (7-17); Hemolysis Index 8
[2021-05-27 12:44] LABS: Alanine Aminotransferase < 5 units/L (7-56); BUN/Creatinine Ratio 16
--- NOTE | 2021-05-27 14:14 | Ultrasound Report ---
ULTRASOUND OBSTETRIC INDICATION: back pain/abd cramp/Quant now 70.43 from 9.57. TECHNIQUE: Transvaginal. COMPARISON: OB ultrasound performed on 05/22/2021. FINDINGS: GESTATIONAL SAC: None seen. YOLK SAC: None seen. EMBRYO/FETUS: None seen. ADNEXA: No significant abnormality. Multiple follicles are seen within each ovary measuring up to 1 c m. FREE FLUID: None. ADDITIONAL FINDINGS: No significant abnormality of the uterus. IMPRESSION: No sonographic evidence of an intrauterine or ectopic or other acute findings. Signer Name: Abraham Salcedo MD Signed: 05/27/2021 2:10 PM Workstation Name: [id number]
[2021-05-27 14:24] LABS: Bilirubin,Urine NEG (Negative); Blood,Urine NEG (Negative); Color,Urine Straw (Yellow); Protein,Urine <15 mg/dL mg/dL (Negative); Urobilinogen,Urine < 2.0 mg/dL (<2.0); WBC,Urine < 1.0 /HPF (0.0-6.0)
== END 2021-05-27 14:54 | disposition home or self-care (01) ==
LOC: ED 10:39
DX: O20.0 Threatened abortion (principal); F17.200 Nicotine dependence, unspecified, uncomplicated; F12.10 Cannabis abuse, uncomplicated; M54.9 Dorsalgia, unspecified; Z3A.01 Less than 8 weeks gestation of pregnancy
CPT/HCPCS: 36415; 76817; 80053; 81001; 83690; 84702; 85025; 99284